=== PATIENT | male | born 1985 | race African-American/Black ===

== ENCOUNTER 2020-03-13 06:11 | Day surgery (SDC) | payer OTHER ==
[2020-03-11 17:57] VITALS: BMI 27.8
[2020-03-13] MEDS ORDERED: PROPOFOL 20 ML ONE ×3 (11:07)
[2020-03-13] MEDS ORDERED: EPHEDRINE SULFATE/0.9% NACL/PF 50 MG/10 ML SYRINGE NR ONE (11:07)
[2020-03-13] MEDS ORDERED: SUCCINYLCHOLINE CHLORIDE 200 MG/10 ML SYRINGE ONE (11:07)
[2020-03-13] MEDS ORDERED: MIDAZOLAM HCL 2 MG/2 ML SINGLE DOSE VIAL ONE (11:07)
[2020-03-13] MEDS ORDERED: LIDOCAINE HCL 1%, 10 MG/ML (20ML VIAL) ONE (11:07)
[2020-03-13] MEDS ORDERED: KETOROLAC TROMETHAMINE 30 MG/1 ML VIAL ONE (11:11)
[2020-03-13] MEDS ORDERED: DEXAMETHASONE SOD PHOSPHATE 4 MG/1 ML VIAL ONE (11:11)
[2020-03-13] MEDS ORDERED: LIDOCAINE HCL 2% JELLY (5 ML/TUBE) ONE (11:11)
[2020-03-13] MEDS ORDERED: GLYCOPYRROLATE 0.2 MG/1 ML VIAL ONE (11:13)
[2020-03-13] MEDS ORDERED: ceFAZolin SODIUM 1 GM VIAL IVPB ONE (11:30)
[2020-03-13] MEDS ORDERED: ceFAZolin SODIUM 1 GM VIAL ONE (11:30)
[2020-03-13] MEDS ORDERED: BUPIVACAINE HCL/PF 0.5% (5 MG/ML) 30 ML VIAL IJ ONE (11:35)
[2020-03-13] MEDS ORDERED: LIDOCAINE HCL 1%, 10 MG/ML (20ML VIAL) NR ONE (11:35)
[2020-03-13] MEDS ORDERED: DESFLURANE GAS 240 ML BOTTLE IH ONE (11:42)
[2020-03-13] MEDS ORDERED: ONDANSETRON 4 MG/2 ML VIAL IVPUSH PRN (13:10)
[2020-03-13] MEDS ORDERED: oxyCODONE HCL 5 MG TABLET PO PRN (13:10)
[2020-03-13 13:24] VITALS: TEMP 98
[2020-03-13 16:33] VITALS: BP 118/84; PULSE 50
== END 2020-03-13 15:30 | disposition home or self-care (01) ==
LOC: JASU-SURG 06:11
PROVIDERS: ATTEND Urology
PROC: 0VTQ0ZZ Resection of Bilateral Vas Deferens, Open Approach (ICD-10-PCS; principal; 2020-03-13 12:00)
DX: Z30.2 Encounter for sterilization (principal)
CPT/HCPCS: 88302-TC; 94760

== ENCOUNTER 2022-12-08 15:06 | Emergency (ER) | payer OTHER ==
[2022-12-08 15:13] VITALS: BP 116/79; PULSE 60; RESP 20; TEMP 98.3; BMI 28.5
[2022-12-08] MEDS ORDERED: ACETAMINOPHEN 500 MG TABLET (FP) PO ONE (15:50)
[2022-12-08] MEDS ORDERED: ACETAMINOPHEN 500 MG TABLET (FP) ONE (15:53)
== END 2022-12-08 16:38 | disposition home or self-care (01) ==
LOC: JERFT 15:06
DX: L02.416 Cutaneous abscess of left lower limb (principal); M79.652 Pain in left thigh; R22.42 Localized swelling, mass and lump, left lower limb; L03.116 Cellulitis of left lower limb
CPT/HCPCS: 99283-25